=== PATIENT | female | born 1955 | race American Indian/Alaskan Native ===

== ENCOUNTER 2020-04-14 06:30 | Day surgery (SDC) | payer MEDICARE, OTHER ==
[2020-04-14] MEDS ORDERED: SODIUM CHLORIDE 0.9% 1000 ML 1,000 ML IV SCH (07:30)
--- NOTE | 2020-04-14 07:35 | Anesthesia Consultation ---
Anesthesia Consult and Med Hx Date of service: 04/14/20 - Airway Anesthetic Teeth Evaluation: Good ROM Head & Neck: Adequate Mental/Hyoid Distance: Adequate Mallampati Class: Class II Intubation Access Assessment: Good - Pulmonary Exam CTA: Yes - Cardiac Exam Cardiac Exam: RRR - Pre-Operative Health Status ASA Pre-Surgery Classification: ASA2 Proposed Anesthetic Plan: MAC - Pulmonary Hx Smoking: No Hx Asthma: Yes (months since last had to use rescue inhaler ) Hx Respiratory Symptoms: No SOB: No (denies) COPD: No Hx Pneumonia: No Hx Sleep Apnea: No - Cardiovascular System Hx Hypertension: Yes Hx Coronary Artery Disease: No (high cholesterol) Hx Heart Attack/AMI: No Hx Angina: No (denies) Hx Percutaneous Transluminal Coronary Angioplasty (PTCA): No Hx Cardia Arrhythmia: No Hx Pacemaker: No Hx Internal Defibrillator: No Hx Valvular Heart Disease: No Hx Heart Murmur: No Hx Peripheral Vascular Disease: No - Central Nervous System Hx Neuromuscular Disorder: No (numbness/tingling both feet) 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
--- NOTE | 2020-04-14 07:36 | Anesthesia Day of Surgery ---
Anesthesia Day of Surgery - Day of Surgery Patient Examined: Yes Patient H&P Reviewed: Yes Patient is NPO: Yes
[2020-04-14] MEDS ORDERED: propofoL 200 MG/20 ML VIAL IV ONE ×2 (07:40→09:08)
[2020-04-14] MEDS ORDERED: LIDOCAINE MPF (2%) 20 MG/1 ML VIAL 5 ML ONE (07:40)
[2020-04-14] MEDS ORDERED: WATER FOR IRRIG STERILE 250 ML BOTTLE IR ONE (08:51)
[2020-04-14] MEDS ORDERED: WATER FOR IRRIG STERILE 1,000 ML BOTTLE ONE (08:51)
--- NOTE | 2020-04-14 09:26 | Operative Report ---
PROCEDURE: Colonoscopy with biopsy. INDICATIONS: This is a 64-year-old -[place] female originally from the [facility], who has a family history of cancer, prior history of colon polyps. She has lately been having some abdominal pain and colonoscopy was done to assess for any significant lower GI pathology. DESCRIPTION OF PROCEDURE: The procedure was done after getting informed consent with MAC anesthesia. Initial rectal exam was unremarkable. Instrument was passed through the rectum onto the cecum, which was identified by the ileocecal valve and the appendiceal orifice. Visualization was fair to good. The terminal ileum could not be intubated. There was a small 7-8 mm polyp noted in the cecum that was removed by cold biopsy. The remaining part of the cecum, ascending colon, transverse colon, descending colon and most of the sigmoid showed normal mucosa. Random biopsies were done to rule out for possible microscopic colitis with minimal bleeding. In addition, there were a few small polyps, possibly hyperplastic, noted in the rectosigmoid area that were removed also by cold biopsy and the rectum showed some minor internal hemorrhoid on the retroverted view. ASSESSMENT: Abdominal pain, rule out microscopic colitis, colon polyp screening, family history of cancer, a few small rectosigmoid and cecal polyp noted that were removed by cold biopsy, rule out microscopic colitis and minor internal hemorrhoid on the retroverted view. There was minimal bleeding associated with the procedure. No complications associated with the procedure. The patient will be asked to avoid aspirin and aspirin-related products for the next few days. Resume home medication otherwise and will be treated with Bentyl on a p.r.n. basis for the abdominal pain and asked to follow up in the office in 1-2 weeks' time. The procedure was done in the GI lab with assistance of the GI lab team, which included KIERAN, Kandace Hernández, pj Keith and with assistance of anesthesia. JOB# [id number] NIVIA/JACLYN
--- NOTE | 2020-04-14 09:32 | Procedure Note ---
Date of procedure: 04/14/20 Pre-op diagnosis: Colon Polyp Screening/ F/H/O Cancer/Abdominal Pain Post-op diagnosis: other (Multiple,Small Colon Polyps (Recto-Sigmoid and Cecal)/ R/O Microscopic Colitis) Procedure: Colonoscopy with Biopsy Anesthesia: MAC Surgeon: ANTIONETTE NORTH Estimated blood loss: minimal Pathology: list Specimen disposition: to lab Condition: stable Disposition: same day (Avoid aspirin and NSAID for 5 days, otherwise resume home medication;treat with prn Bentyl and follow up in 1 to 2 weeks ([phone]).)
--- NOTE | 2020-04-14 09:37 | Post Anesthesia Evaluation ---
- Post Anesthesia Evaluation Patient Participated: Yes Airway Patent: Yes Stable Respiratory Function: Yes Nausea/Vomiting: No Temp > 96.8F: Yes Pain Manageable: Yes Adequeate Hydration: Yes Anesthesia Complications: No Block Receding Appropriately: Not Applicable Patient on Ventilator: No
[2020-04-14 09:52] VITALS: BP 138/67
== END 2020-04-14 09:57 | disposition home or self-care (01) ==
LOC: GIO 06:30
DX: R10.9 Unspecified abdominal pain (principal); D12.0 Benign neoplasm of cecum; R14.0 Abdominal distension (gaseous); K64.8 Other hemorrhoids; H40.9 Unspecified glaucoma; E78.00 Pure hypercholesterolemia, unspecified; I10 Essential (primary) hypertension; J45.909 Unspecified asthma, uncomplicated; K21.9 Gastro-esophageal reflux disease without esophagitis; F32.9 Major depressive disorder, single episode, unspecified; M19.90 Unspecified osteoarthritis, unspecified site; M79.7 Fibromyalgia; Z98.890 Other specified postprocedural states; Z90.49 Acquired absence of other specified parts of digestive tract; Z98.891 History of uterine scar from previous surgery; Z80.0 Family history of malignant neoplasm of digestive organs; Z86.010 Personal history of colon polyps; Z82.49 Family history of ischemic heart disease and other diseases of the circulatory system; Z88.8 Allergy status to other drugs, medicaments and biological substances
CPT/HCPCS: 45380; 88305; J2704; J7030

== ENCOUNTER 2021-04-13 07:43 | Day surgery (SDC) | payer MEDICARE, OTHER ==
[~2021-04-13 07:43] MED LIST: SODIUM CHLORIDE 0.9% 1000 ML 1,000 ML IV SCH
--- NOTE | 2021-04-13 08:24 | Anesthesia Consultation ---
Anesthesia Consult and Med Hx Date of service: 04/13/21 - Airway Anesthetic Teeth Evaluation: Good ROM Head & Neck: Adequate Mental/Hyoid Distance: Adequate Mallampati Class: Class II Intubation Access Assessment: Probably Good - Pulmonary Exam CTA: Yes - Pre-Operative Health Status ASA Pre-Surgery Classification: ASA2 Proposed Anesthetic Plan: MAC - Pulmonary Hx Smoking: No Hx Asthma: Yes (months since last had to use rescue inhaler ) Hx Respiratory Symptoms: No SOB: No (denies) COPD: No Hx Pneumonia: No Hx Sleep Apnea: No - Cardiovascular System Hx Hypertension: Yes Hx Coronary Artery Disease: No (high cholesterol) Hx Heart Attack/AMI: No Hx Angina: No (denies) Hx Percutaneous Transluminal Coronary Angioplasty (PTCA): No Hx Cardia Arrhythmia: No Hx Pacemaker: No Hx Internal Defibrillator: No Hx Valvular Heart Disease: No Hx Heart Murmur: No Hx Peripheral Vascular Disease: No - Central Nervous System Hx Neuromuscular Disorder: No (numbness/tingling both feet) 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) CVA: No Hx Back Pain: Yes (chronic, has spinal cord stimulator) Hx Psychiatric Problems: No - Gastrointestinal Hx Ulcer: No Hx Gastroesophageal Reflux Disease: Yes (Hiatal hernia, GERD, IBS, hemorrhoids, chronic constipation) - Endocrine Hx Renal Disease: No Hx Liver Disease: No Hx Insulin Dependent Diabetes: No Hx Non-Insulin Dependent Diabetes: No Hx Thyroid Disease: No - Hematic Hx Anemia: No Hx Sickle Cell Disease: No - Other Systems Hx Alcohol Use: No Hx Substance Use: No Hx Cancer: No Hx Obesity: No - Additional Comments Anesthesia Medical History Comments: Patient denied previous anesthesia complications
--- NOTE | 2021-04-13 08:26 | Anesthesia Day of Surgery ---
Anesthesia Day of Surgery - Day of Surgery Patient Examined: Yes Patient H&P Reviewed: Yes Patient is NPO: Yes Beta Blockers: No Cardiac Clearance: No Pulmonary Clearance: No Jignesh's Test: N/A
--- NOTE | 2021-04-13 08:37 | History and Physical Report ---
ADMIT DATE: 04/13/2021 HISTORY OF PRESENT ILLNESS: This is a 65-year-old -[place] female who is originally from the [facility] with an underlying family history of cancer, prior history of colon polyp of the tubular adenoma type. 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 She is to have a colonoscopy done to assess for possible colonoscopy and also an EGD to assess for possible celiac disease and any significant upper GI pathology. Procedures to be done on 04/13/2021. ALLERGIES: She has a history of allergy to multiple medications including FENTANYL, IVP DYE, DILAUDID, CLINDAMYCIN. SOCIAL HISTORY: Denies history of smoking or alcohol use. No cardiac issues. No flu shots. She has had her COVID vaccine. PHYSICAL EXAMINATION: VITAL SIGNS: Temperature is 97.5, blood pressure is 124/86, pulse is 77, height is 5 feet, weight is 146 pounds. HEENT: Shows no JVD. LUNGS: Clear to auscultation. CARDIOVASCULAR: Normal. ABDOMEN: Soft. Bowel sounds present. NEUROLOGIC: The patient is otherwise alert and oriented. 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 PLAN: To do an EGD and a colonoscopy at [facility] on 04/13/2021. Suprep to be used as the patient's prep. Linzess has been given to the patient for chronic idiopathic constipation. TID: [id number] RECEIPT: [id number] NIVIA/TAWNY
[2021-04-13] MEDS ORDERED: LIDOCAINE MPF (2%) 20 MG/1 ML VIAL 5 ML ONE (09:02)
[2021-04-13] MEDS ORDERED: ONDANSETRON 4 MG/2 ML INJ ONE (09:02)
[2021-04-13] MEDS ORDERED: fentaNYL 100 MCG/2 ML INJ ONE (09:02)
[2021-04-13] MEDS ORDERED: propofoL 200 MG/20 ML VIAL IV ONE ×2 (09:03→09:19)
--- NOTE | 2021-04-13 09:57 | Procedure Note ---
Date of procedure: 04/13/21 Pre-op diagnosis: Abdominal Pain/ GERD/ H/O Colon Polyps Post-op diagnosis: other (Mild to Moderate Erosive Esophagitis/ Gastritis and GastricErosion/R/O Celiac Disease/ H/O Colon Polyps (none now)/ No Diverticular Disease/ No Internal Hemorrhoids/ R/O Microscopic Colitis/ R/O Ileitis) Procedure: EGD with Biopsy and Colonoscopy with Bio[psy Anesthesia: MAC Surgeon: ANTIONETTE NORTH Estimated blood loss: minimal Pathology: list Specimen disposition: to lab Condition: stable Disposition: same day (Treat with PPI, prn Bentyl and OTC Prtobiotic. Avoid aspirin and NSAID for 4 days; otherwise resume home medication and follow up in 1 to 2 weeks ([id number]).)
--- NOTE | 2021-04-13 10:02 | Operative Report ---
DATE OF SURGERY: 04/13/2021 PROCEDURE PERFORMED: EGD with biopsy. INDICATIONS: A 65-year-old -[place] female originally from the [facility], who has been complaining of abdominal pain and discomfort. She also gives a history of allergy to certain food products. EGD was done to make sure there was no significant upper GI pathology and also do biopsies to rule out for possible celiac disease. She also has a history of GERD symptoms. DESCRIPTION OF PROCEDURE: Procedure was done after getting informed consent with MAC anesthesia. The instrument was passed through the hypopharynx into the esophagus, which showed mild to moderate distal erosive esophagitis. Photodocumentation and biopsy was done from the distal esophagus as well as the mid esophagus to rule out eosinophilic esophagitis. Stomach showed antral erosion and gastritis. Biopsy was done from the gastric antrum and gastric body to rule out for H. pylori and atrophic gastritis. No peptic ulcer disease was noted. The pylorus is patent. The duodenum in the first and second portion appeared normal. Biopsy was done from the second part to rule out for possible celiac disease. There was minimal bleeding associated with the procedure. No complications associated with the procedure. ASSESSMENT: Gastroesophageal reflux disease symptoms, abdominal pain, mild to moderate distal erosive esophagitis, rule out eosinophilic esophagitis, gastritis, gastric erosions involving the antrum, rule out celiac disease. No peptic ulcer disease noted. PLAN: To treat the patient with PPI, p.r.n. dose of Bentyl. Encourage the patient to take probiotics. Avoid aspirin and aspirin-related products for the next few days and to follow up in the office in 1-2 weeks' time. Colonoscopy is also going to be done since the patient has a prior history of colon polyps and also to rule out for possible associated microscopic colitis. There was minimal bleeding associated with the procedure. No complications associated with the procedure. Procedure was done in the GI lab with assistance of the GI lab team, which included the GI nurse, the geotechnical department manager and with assistance of Anesthesia. TID: [id number] RECEIPT: [id number] LADONNA
--- NOTE | 2021-04-13 10:35 | Operative Report ---
DATE OF SURGERY: 04/13/2021 PROCEDURE PERFORMED: Colonoscopy and biopsy. INDICATIONS: The patient had EGD done prior to the colonoscopy, which showed mild to moderate erosive esophagitis and gastritis as well as gastric erosion, but no peptic ulcer disease. Biopsy was also done to rule out for possible celiac disease. Colonoscopy was done to assess for any colon polyps. The patient has a prior history of colon polyps and to assess for her abdominal pain. DESCRIPTION OF PROCEDURE: Procedure was done after getting informed consent with MAC anesthesia. Initial rectal examination was unremarkable. The instrument was passed through the rectum and onto the cecum, which was identified by the ileocecal valve and the appendiceal orifice. Visualization was fair to good. The terminal ileum was intubated, showed normal mucosa. Biopsy was done to rule out for possible ileitis. Cecum, ascending colon, transverse colon, descending colon and sigmoid likewise showed normal mucosa. There was no evidence of any polyps, colitis or diverticular disease. The patient gives a prior history of colon polyp. No colon polyps present. Random biopsies were done to rule out for possible microscopic colitis and the rectum appeared normal on the retroverted view. ASSESSMENT: Abdominal pain, history of colon polyps, none noted, known diverticular disease, rule out microscopic colitis, rule out ileitis. PLAN: To treat the patient with proton pump inhibitor for the EGD findings of esophagitis and gastritis. Bentyl for abdominal pain to be taken on a p.r.n. basis and probiotics. The patient will be asked to avoid aspirin and aspirin-related products for the next few days and follow up in the office in 1-2 weeks' time, but other than for aspirin or aspirin-related products, the patient will be asked to resume home medications. Procedure was done in the GI lab with assistance of the GI lab team, which included the GI nurse, the energy conservation technician and with assistance of anesthesia. TID: [id number] RECEIPT: [id number] NIVIA/DENNISE
--- NOTE | 2021-04-13 10:47 | Post Anesthesia Evaluation ---
- Post Anesthesia Evaluation Patient Participated: Yes Airway Patent: Yes Stable Respiratory Function: Yes Nausea/Vomiting: No Temp > 96.8F: Yes Pain Manageable: Yes Adequeate Hydration: Yes Anesthesia Complications: No
[2021-04-13 11:02] VITALS: BP 109/58
== END 2021-04-13 10:48 | disposition home or self-care (01) ==
LOC: GIO 07:43
DX: R10.9 Unspecified abdominal pain (principal); K59.04 Chronic idiopathic constipation; K57.30 Diverticulosis of large intestine without perforation or abscess without bleeding; K64.0 First degree hemorrhoids; R13.10 Dysphagia, unspecified; K63.89 Other specified diseases of intestine; K31.89 Other diseases of stomach and duodenum; K21.00 Gastro-esophageal reflux disease with esophagitis, without bleeding; K29.50 Unspecified chronic gastritis without bleeding; J45.909 Unspecified asthma, uncomplicated; I10 Essential (primary) hypertension; E78.00 Pure hypercholesterolemia, unspecified; M19.90 Unspecified osteoarthritis, unspecified site; F32.9 Major depressive disorder, single episode, unspecified; Z86.010 Personal history of colon polyps; Z80.0 Family history of malignant neoplasm of digestive organs; Z90.710 Acquired absence of both cervix and uterus; Z90.49 Acquired absence of other specified parts of digestive tract; Z98.890 Other specified postprocedural states; Z79.899 Other long term (current) drug therapy; Z82.49 Family history of ischemic heart disease and other diseases of the circulatory system; Z88.1 Allergy status to other antibiotic agents; Z88.6 Allergy status to analgesic agent; Z88.8 Allergy status to other drugs, medicaments and biological substances
CPT/HCPCS: 43239; 45380; 88305; 88342; J2405; J2704; J7030; J3010

== ENCOUNTER 2022-03-27 08:54 | Outpatient (CLI) | payer MEDICARE, OTHER ==
--- NOTE | 2022-03-27 11:40 | Cat Scan Report ---
CT CHEST, ABDOMEN, AND PELVIS WITH CONTRAST INDICATION / CLINICAL INFORMATION: R10.84 LOWER ABDOMINAL PAIN. TECHNIQUE: Axial CT images were obtained through the chest, abdomen, and pelvis after 100 cc of Omnip aque [address] scans at this location are performed using CT dose reduction for ALARA b y means of automated exposure control. COMPARISON: None available. FINDINGS: HEART: No significant abnormality. CORONARY ARTERY CALCIFICATION: Mild. THORACIC AORTA: No significant abnormality. MEDIASTINUM / XIAO: No significant abnormality. PLEURA: No pleural effusion. No pneumothorax. LUNGS: No acute air space or interstitial disease. No suspicious pulmonary lesion. ADDITIONAL CHEST FINDINGS: None. LIVER: No significant abnormality. GALLBLADDER: Surgically removed. BILE DUCTS: There is mild central biliary prominence which likely represents reservoir effect followi ng cholecystectomy. No obvious obstructing lesion in the common bile duct. PANCREAS: No significant abnormality. SPLEEN: No significant abnormality. ADRENALS: No significant abnormality. RIGHT KIDNEY / URETER: No significant abnormality. LEFT KIDNEY / URETER: No significant abnormality. STOMACH and SMALL BOWEL: No significant abnormality. COLON: No significant abnormality. APPENDIX: Not confidently identified. PERITONEUM: No free fluid. No free air. No fluid collection. LYMPH NODES: No significant adenopathy. AORTA / ARTERIES: No significant abnormality. IVC / VEINS: No significant abnormality. URINARY BLADDER: No significant abnormality. REPRODUCTIVE ORGANS: Hysterectomy. No adnexal abnormality. ADDITIONAL FINDINGS: None. SKELETAL SYSTEM: No acute osseous abnormality or bone lesion. There is been previous fusion of both S I joints. Disc spacer at L5-S1 is noted. IMPRESSION: 1. No acute process is identified in the chest, abdomen or pelvis. 2. Surgical changes as described. Signer Name: Jagdish Bush Jr, MD Signed: 03/27/2022 11:35 AM Workstation Name: [id number]
--- NOTE | 2022-03-27 11:40 | Cat Scan Report ---
This examination was dictated along with CT chest with contrast performed the same day. Please refer to that report. Signer Name: Jagdish Bush Jr, MD Signed: 03/27/2022 11:35 AM Workstation Name: [id number]
== END 2022-03-27 08:55 | disposition home or self-care (01) ==
LOC: CT 08:54
DX: R10.84 Generalized abdominal pain (principal); K51.80 Other ulcerative colitis without complications; Z80.49 Family history of malignant neoplasm of other genital organs; Z90.710 Acquired absence of both cervix and uterus
CPT/HCPCS: 71260; 74177; Q9967